=== PATIENT | male | born 1960 | race Caucasian/White ===

== ENCOUNTER 2022-03-20 08:43 | Emergency (ER) | payer BC ==
[~2022-03-20] VITALS: Ht 177.8 cm; Wt 77.1 kg
[2022-03-20 08:53] VITALS: BP_SYST 175
--- NOTE | 2022-03-20 09:00 | NUR ---
PT BIBS FOR C/O BLE WEAKNESS AND SHAKINESS WITH STARTED THIS MORNING, PT STATED HE HAD A HARD TIME STANDING UP. PT IS AAOX4, RESP E/U. ON R/A. NORMAL S1S2, PT HAS ELEVATED B/P AT 175/93. DENIES N/V/D/C. SKIN INTACT, NO EDEMA. DENIES PAIN.
--- NOTE | 2022-03-20 09:08 | NUR ---
DR. TABOR MEETING WITH PT TO ASSESS.
[2022-03-20] MEDS ORDERED: AMLO5TAB4 PO (09:22)
[2022-03-20 09:30] VITALS: BP_SYST 168
--- NOTE | 2022-03-20 09:33 | NUR ---
Patient given written and verbal discharge instructions and verbalizes understanding. ER MD discussed with patient the results and treatment provided. Patient in stable condition. ID arm band removed. Rx of NORVASC given. Patient educated on pain management and to follow up with PMD. Pain Scale 0/10. Opportunity for questions provided and answered. Medication side effect fact sheet provided.
== END 2022-03-20 09:33 | disposition home health service (06) ==
LOC: SED 08:43
DX: R53.1 Weakness (principal); I10 Essential (primary) hypertension; Z79.899 Other long term (current) drug therapy
CPT/HCPCS: 99283